=== PATIENT | female | born 1940 | race Caucasian/White ===

== ENCOUNTER 2018-03-22 14:04 | Inpatient (IN) | payer OTHER ==
[~2018-03-22] VITALS: Ht 152.4 cm; Wt 74.8 kg
[2018-03-22] MEDS ORDERED: ZOCOR5 MG PO (14:12)
[2018-03-22] MEDS ORDERED: TOPROL XL100 MG PO (14:13)
== END 2018-03-31 10:59 | disposition home or self-care (01) | DRG 331 ==
LOC: EDSEX 14:04 → EDBD 14:04 → ER 14:04 → SEC-K 20:12 → SURH 20:12
PROVIDERS: Surgery
PROC: 0D1N0Z4 Bypass Sigmoid Colon to Cutaneous, Open Approach (ICD-10-PCS; 2018-03-22)
PROC: BW21ZZZ Computerized Tomography (CT Scan) of Abdomen and Pelvis (ICD-10-PCS; 2018-03-22)
PROC: 0DTN0ZZ Resection of Sigmoid Colon, Open Approach (ICD-10-PCS; principal; 2018-03-22 20:00)
DX: K57.20 Diverticulitis of large intestine with perforation and abscess without bleeding (principal); I10 Essential (primary) hypertension; E11.9 Type 2 diabetes mellitus without complications; E78.00 Pure hypercholesterolemia, unspecified; Z96.653 Presence of artificial knee joint, bilateral